=== PATIENT | female | born 1980 | race Caucasian/White ===

== ENCOUNTER 2018-07-30 21:21 | Emergency (ER) | payer OTHER ==
[~2018-07-30] VITALS: Ht 165.1 cm; Wt 107.0 kg
[2018-07-30 21:35] VITALS: BP 103/64
[2018-07-30] MEDS ORDERED: ZOLOFT100 MG ORAL (21:43)
[2018-07-30] MEDS ORDERED: LIALDA1.2 GM ORAL (21:43)
[2018-07-30] MEDS ORDERED: GABAPENTIN800 MG ORAL (21:43)
[2018-07-30] MEDS ORDERED: KLONOPIN1 MG ORAL (21:43)
[2018-07-30] MEDS ORDERED: Ketorolac 30mg Inj IV ONE (22:00)
[2018-07-30] MEDS ORDERED: Solu-MEDROL 125mg Inj IVP ONE (22:00)
--- NOTE | 2018-07-30 22:08 | Emergency Room Report ---
History of Present Illness General Chief Complaint: Abdominal Pain Source: Patient Present Illness HPI Is a 37-year-old female with a history of ulcerative colitis with chronic pain. She is taking oxycodone, Soma and clonazepam. She presents with chief complaint abdominal pain with diarrhea. Onset for 5 days. Initially watery and now with specks of blood. Similar presentation in the past. Pain is crampy in nature. 9 out of 10. Nothing made it better. Palpation made it worse. Denies any other complaint. She recently moved to [facility] visiting an uncle here. Allergies: Coded Allergies: No Known Allergies (Unverified , 07/30/18) Patient History Past Medical History: see triage record, old chart reviewed Past Surgical History: other Pertinent Family History: none Social History: Denies: smoking Last Menstrual Period: 07-03-2018 Now: No Immunizations: other Reviewed Nursing Documentation: PMH: Agreed; PSxH: Agreed Nursing Documentation-PMH Past Medical History: No Stated History Hx Gastrointestinal Problems: Yes - COLITIS Review of Systems Eye: Denies: eye pain, blurred vision ENT: Denies: ear pain, nose congestion, throat swelling Respiratory: Denies: cough, shortness of breath Cardiovascular: Denies: chest pain, palpitations Gastrointestinal: Reports: abdominal pain, diarrhea; Denies: nausea, vomiting Musculoskeletal: Denies: back pain, joint pain Skin: Denies: rash Neurological: Denies: headache, numbness Endocrine: Denies: increased thirst, increased urine Hematologic/Lymphatic: Denies: easy bruising All Other Systems: negative except mentioned in HPI Physical Exam Vital Signs Date Time Temp Pulse Resp B/P (MAP) Pulse Ox O2 Delivery O2 Flow Rate FiO2 07/30/18 21:35 98.2 88 18 103/64 97 vitals carlos Sp02 EP Interpretation: reviewed, normal General Appearance: well appearing, no apparent distress, alert Head: normocephalic, atraumatic Eyes: bilateral eye PERRL, bilateral eye EOMI ENT: hearing grossly normal, normal pharynx Neck: full range of motion, supple, no meningismus Respiratory: chest non-tender, lungs clear, normal breath sounds Cardiovascular #1: regular rate, rhythm, no murmur Gastrointestinal: normal bowel sounds, no mass, no organomegaly, no bruit, non- distended, tenderness - diffuse Musculoskeletal: back normal, gait/station normal, normal range of motion Psychiatric: mood/affect normal Skin: warm/dry Medical Decision Making Diagnostic Impression: Primary Impression: Abdominal pain Qualified Codes: R10.84 - Generalized abdominal pain Additional Impression: Opioid dependence Qualified Codes: F11.20 - Opioid dependence, uncomplicated ER Course Patient presents with abdominal pain. She said this is an exacerbation of her ulcerative colitis with rectal bleeding. I suspect and opioid dependency here. She has IV patel on her hands and tape patel. She claimed that this was from a month ago when they did blood work. I doubt that this is the case. Initially she told me that she is out of her oxycodone but then later said that she still have some at home and is not helping. She is currently getting 150 tablets of oxycodone 20 mg area and also getting 60 tablets of Soma, 30 tablets of Ambien and 90 tablets of clonazepam 1 mg monthly. I am uncomfortable prescribing her more narcotics. Because patient was not getting Opiates, she said she want to sign out AMA. She refuse the CT scan. I called [facility] in [facility]. She was there at the end of May for the same thing. Workup was also negative. She refuse CT scan and sign out AMA. Lab Results Impression labs unremarkable CT/MRI/US Diagnostic Results CT/MRI/US Diagnostic Results : Imaging Test Ordered: CT abdomen and pelvis Impression patient refused Last Vital Signs Date Time Temp Pulse Resp B/P (MAP) Pulse Ox O2 Delivery O2 Flow Rate FiO2 07/30/18 21:35 98.2 88 18 103/64 97 Status: unchanged Disposition: AGAINST MEDICAL ADVICE Condition: Stable Pepe Jauregui MD Jul 30, 2018 22:08
--- NOTE | 2018-07-30 22:25 | NUR ---
IV line started, bloods and urine collected,delivered to lab. Patient keeps asking for pain killer.
[2018-07-30 22:48] LABS: APPEARANCE,URINE CLEAR; BILIRUBIN, URINE NEGATIVE (NEGATIVE); COLOR,URINE PALE YELLOW; GLUCOSE, URINE (UA) NEGATIVE (NEGATIVE); KETONES,URINE NEGATIVE (NEGATIVE); LEUKOCYTE ESTERASE ,URINE 1+ (NEGATIVE); NITRITE,URINE NEGATIVE (NEGATIVE); PH,URINE 5 (4.5-8.0); PROTEIN,URINE NEGATIVE (NEGATIVE); UROBILINOGEN,URINE NORMAL MG/DL (0.0-1.0)
[2018-07-30 22:52] LABS: BASOPHILS % (AUTO) 1.5 % (0.0-2.0); EOSINOPHILS % (AUTO) 2.9 % (0.0-3.0); HEMOGLOBIN 10.4 G/DL (12.0-16.0); LYMPHOCYTES % (AUTO) 24.7 % (20.0-45.0); MEAN CORPUSCULAR VOLUME 78 FL (80-99); MONOCYTES % (AUTO) 10.2 % (1.0-10.0); NEUTROPHILS % (AUTO) 60.7 % (45.0-75.0); PLATELET COUNT 278 K/UL (150-450); RED BLOOD COUNT 4.21 M/UL (4.20-5.40); RED CELL DISTRIBUTION WIDTH 15.8 % (11.6-14.8)
--- NOTE | 2018-07-30 23:00 | NUR ---
ED Nurse Note: PT refused toradol, solu- medrol, and IV 1000 NS medication after medication was drawn up. medication unable to return due to sterility and medication tampering (solu medrol already has been mixed, toradol protection cap removed) medication was waisted. RN Maren maher waist.
--- NOTE | 2018-07-30 23:00 | NUR ---
Note chris in EDM - 07/31/18 at 0126 by JHOAN ED Nurse Note: PT refused toradol, solu- medrol, and IV 1000 NS medication after medication was drawn up. medication unable to return due to sterility and medication tampering (solu medrol already has been mixed, toradol protection cap removed) medication was waisted
[2018-07-30 23:08] LABS: ANION GAP 8 mmol/L (5-15); BLOOD UREA NITROGEN 7 mg/dL (7-18); CALCIUM 8.8 MG/DL (8.5-10.1); CARBON DIOXIDE 29 MMOL/L (21-32); CHLORIDE 103 MMOL/L (98-107); CREATININE 0.8 MG/DL (0.55-1.30); POTASSIUM 3.9 MMOL/L (3.5-5.1); SODIUM 140 MMOL/L (136-145)
[2018-07-30 23:12] LABS: ALANINE AMINOTRANSFERASE 28 U/L (12-78); ALBUMIN 3.2 G/DL (3.4-5.0); ALKALINE PHOSPHATASE 123 U/L (46-116); ASPARTATE AMINO TRANSFERASE 32 U/L (15-37); BILIRUBIN,TOTAL 0.2 MG/DL (0.2-1.0)
[2018-07-30 23:15] VITALS: BP 103/64
--- NOTE | 2018-07-30 23:15 | NUR ---
ED Nurse Note: PT became irritated that due to her toradol, Solu - medrol, and IV 1L NS medication, stating "Those medications are not going to do shit for me" pt quickly wanted to leave ER. RN removed ID band and IV Hep Lock. unable to obtain proper reassessment due to the fact pt wanted to quickly leave ER. pt walked out with steady gait. pt left with all belongings. pt also refused to sign Against Medical Advice as she stated "Im not signing shit" MD Jauregui aware.
== END 2018-07-30 23:15 | disposition left against medical advice (07) ==
LOC: EMR 21:58
DX: R10.9 Unspecified abdominal pain (principal); F11.20 Opioid dependence, uncomplicated; Z87.19 Personal history of other diseases of the digestive system
CPT/HCPCS: 36415; 80053; 80307; 81003; 81025; 83690; 85025; 99284